=== PATIENT | male | born 1980 | race Caucasian/White ===

== ENCOUNTER 2019-06-18 13:44 | Emergency (ER) | payer MEDICAID, OTHER ==
[~2019-06-18] VITALS: Ht 180.3 cm; Wt 70.2 kg
[2019-06-18 13:59] VITALS: BP 151/100
--- NOTE | 2019-06-18 16:53 | NUR ---
CERTIFIED PHLEBOTOMIST: PT TO ROOM FROM [facility]
== END 2019-06-18 18:21 | disposition home or self-care (01) ==
LOC: ED 18:15
DX: S16.1XXA Strain of muscle, fascia and tendon at neck level, initial encounter (principal); S00.83XA Contusion of other part of head, initial encounter; X58.XXXA Exposure to other specified factors, initial encounter; Y93.89 Activity, other specified; Y92.89 Other specified places as the place of occurrence of the external cause; Y99.8 Other external cause status
CPT/HCPCS: 70100; 71046; 99283

== ENCOUNTER 2019-06-19 19:26 | Emergency (ER) | payer OTHER ==
[~2019-06-19] VITALS: Ht 180.3 cm; Wt 72.9 kg
[2019-06-19] MEDS ORDERED: LORazepam 1MG TABLET ONE (19:59)
[2019-06-19] MEDS ORDERED: LORazepam 1MG TABLET PO ONE (20:00)
[2019-06-19] MEDS ORDERED: ZIPRASIDONE 20 MG INJ IM ONE ×2 (20:04→20:30)
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
[2019-06-19 20:37] LABS: BASOPHILS # (AUTO) 0.01 x10^3/uL (0-0.1); BASOPHILS % (AUTO) 0 % (0-1); EOSINOPHILS # (AUTO) 0.11 x10^3/uL (0-0.4); EOSINOPHILS % (AUTO) 1 % (1-7); LYMPHOCYTES # (AUTO) 1.77 x10^3/uL (1-3.4); LYMPHOCYTES % (AUTO) 16 % (22-44); MD NO; MEAN CORPUSCULAR HEMOGLOBIN 31.5 pg (27.5-34.5); MEAN CORPUSCULAR HGB CONC 33.6 g/dL (33.2-36.2); MEAN CORPUSCULAR VOLUME 93.9 fL (81-97); MEAN PLATELET VOLUME 8.8 fL (7.4-10.4); MONOCYTES # (AUTO) 0.82 x10^3/uL (0.2-0.8); MONOCYTES % (AUTO) 8 % (2-9); NEUTROPHILS # (AUTO) 8.24 x10^3/uL (1.8-6.8); NEUTROPHILS % (AUTO) 75 % (42-75); PLATELET COUNT 254 x10^3/uL (130-400); RED BLOOD COUNT 5.24 x10^6/uL (4.38-5.82); RED CELL DISTRIBUTION WIDTH 12.9 % (9.4-14.8)
[2019-06-19 20:49] LABS: ANION GAP 11 mmol/L (5-15); CALCIUM 8.8 mg/dL (8.5-10.1); CHLORIDE 107 mmol/L (98-107); SALICYLATE LEVEL 2.3 mg/dL (2.8-20.0)
[2019-06-19 20:52] LABS: ALANINE AMINOTRANSFERASE 36 U/L (12-78); ALKALINE PHOSPHATASE 86 U/L (45-117); BILIRUBIN,TOTAL 1.1 mg/dL (0.2-1.0); CREATININE 1.07 mg/dL (0.7-1.3); TOTAL PROTEIN 7.4 g/dL (6.4-8.2)
--- NOTE | 2019-06-19 22:15 | NUR ---
REPORT GIVEN TO JENNIFER
--- NOTE | 2019-06-19 23:02 | NUR ---
PT RESTING ON GURNEY WITH EYES CLOSED, NADN, EQUAL CHEST RISE/FALL OBSERVED, ROOM SECURED, SITTER AT DOORWAY FOR CONTINOUS MONITORING
--- NOTE | 2019-06-19 23:26 | NUR ---
PT RESTING CALMLY, WHEN THIS RN ASKED HIM ABOUT SUICIDAL THOUGHTS, PT STATED "I'M NOT SURE IF I AM", PT UP TO RR, PROVIDED PT WITH URINE CUP. SITTER AT DOORWAY FOR CONTINOUS MONITORING
[2019-06-20] LABS: AMPHETAMINE SCREEN, URINE Negative (Negative); BARBITURATE SCREEN, URINE Negative (Negative); BENZODIAZEPINE SCREEN, URINE Negative (Negative); CANNABINOID SCREEN, URINE Positive (Negative); COCAINE SCREEN, URINE Negative (Negative); METHADONE SCREEN, URINE Negative (Negative); OPIATE SCREEN, URINE Negative (Negative)
--- NOTE | 2019-06-20 00:12 | NUR ---
PT RESTING CALMLY WITH EYES CLOSED, NADN, EQUAL CHEST RISE/FALL OBSERVED, SITTER AT DOORWAY FOR CONTINOUS MONITORING
--- NOTE | 2019-06-20 00:50 | NUR ---
PROVIDED PT WITH SANDWICH AND DRINK PER HIS REQUEST, SI PRECAUTIONS MAINTAINED, SITTER AT DOORWAY FOR MONITORING
--- NOTE | 2019-06-20 02:05 | NUR ---
PT RESTING CALMLY WITH EYES CLOSED, NADN, EQUAL CHEST RISE/FALL OBSERVED, SITTER AT DOORWAY FOR CONTINOUS MONITORING
--- NOTE | 2019-06-20 02:21 | NUR ---
PROVIDED PT WITH HOSPITAL BED, PT SITTING UP EATING SANDWICH AT THIS TIME, SI PRECAUTIONS MAINTAINED.
--- NOTE | 2019-06-20 03:30 | NUR ---
PT RESTING CALMLYY IN BED WITH EYES CLOSED, NAD, EQUAL CHEST RISE/FALL OBSERVED, SITTER AT DOORWAY FOR CONTINOUS MONITORING
--- NOTE | 2019-06-20 04:17 | NUR ---
PT RESTING WITH EYES CLOSED, NAD, EQUAL CHEST RISE/FALL OBSERVED, SITTER AT DOORWAY FOR CONTINOUS MONITORING
--- NOTE | 2019-06-20 05:10 | NUR ---
PSYCH CONSULT INITIATED
--- NOTE | 2019-06-20 05:32 | NUR ---
TELEBOT [id number] IN PT ROOM, READY FOR CONSULT
--- NOTE | 2019-06-20 05:33 | NUR ---
PT UP TO RR WITH STEADY GAIT, SITTER AT HIS SIDE FOR MONITORING
--- NOTE | 2019-06-20 05:44 | NUR ---
SOC ON TELEPHONE, UPDATED MD ON PT STATUS, H/X, LAB RESULTS AND VS. MD TO CONSULT WITH PT
--- NOTE | 2019-06-20 05:48 | NUR ---
TELE PSYCH CONSULT IN PROGRESS
--- NOTE | 2019-06-20 06:03 | NUR ---
SOC ON TELEPHONE, STATED HE WILL FAX ORDER FOR PT ADMIT AND PRN MEDICATION RECOMMENDATIONS
--- NOTE | 2019-06-20 06:06 | NUR ---
PROVIDED PT WITH DRINK PER HIS REQUEST, ROOM REMAINS SECURED, DENIES FURTHER NEEDS, NAD, SITTER AT DOORWAY FOR CONTINOUS MONITORING
--- NOTE | 2019-06-20 07:05 | NUR ---
REPORT RECIEVED FROM IZA RN, PT RESTING ON BELLA RUBIO NOTED AT THIS TIME. SI PRECAUTIONS IN PLACE
--- NOTE | 2019-06-20 07:05 | NUR ---
REPORT RECIEVED FROM NOC RN, PT RESTING ON [facility]. VISIBLE CHEST RISE AND FALL NOTED. SI PRECAUTIONS OBSERVED
--- NOTE | 2019-06-20 08:11 | NUR ---
PT PROVIDED WITH BREAKFAST TRAY, NO OTHER NEEDS AT THIS TIME
[2019-06-20 08:12] VITALS: BP 120/80
--- NOTE | 2019-06-20 10:03 | NUR ---
PT RESTING ON BED AT THIS TIME, VISIBLE CHEST RISE AND FALL. NAD NOTED
--- NOTE | 2019-06-20 10:49 | NUR ---
REPORT GIVEN TO ANJEL, AWAITING TRANSPORT
--- NOTE | 2019-06-20 10:58 | NUR ---
THROUGHPUT: LATE ENTRY FOR 1000 FAXED INFO SHEETS TO [facility], [facility], [facility], [facility], [facility]. PT ACCEPTED TO [facility]
--- NOTE | 2019-06-20 11:06 | NUR ---
THROUGHPUT. 3E DENIED D/T INSURANCE
--- NOTE | 2019-06-20 11:56 | NUR ---
THROUGHPUT: ALL INFORMATION GIVEN TO [facility]. PT BEING TRANSPORTED TO [facility].
--- NOTE | 2019-06-20 12:07 | NUR ---
PT TRANSPORTED WITH [facility] TO [facility]. VERIFIED RECEIPT OF ALL BELONGINGS WITH PT ON DC. PT STABLE ON DISCHARGE DAY
== END 2019-06-20 12:07 ==
LOC: ED 19:41
DX: F32.3 Major depressive disorder, single episode, severe with psychotic features (principal); F41.1 Generalized anxiety disorder; R06.4 Hyperventilation
CPT/HCPCS: 36415; 80053; 80307; 85025; 93005; 96372; 99284; J3486; 99285